=== PATIENT | female | born 1995 | race Caucasian/White ===

== ENCOUNTER 2019-01-02 04:25 | Emergency (ER) | payer SELFPAY ==
[~2019-01-02] VITALS: Ht 154.9 cm; Wt 72.6 kg
[2019-01-02 04:28] VITALS: Ht 154.9 cm; Wt 72.6 kg
[2019-01-02 05:33] LABS: BASOPHIL % 0.5 % (0-2); PLATELET COUNT 330 x10^3mcL (130-400); RED CELL DISTRIBUTION WIDTH 14.1 % (11.5-14.5)
[2019-01-02 05:40] LABS: CALCIUM 8.2 mg/dL (8.5-10.1); CARBON DIOXIDE 25.3 mmol/L (21-32); CHLORIDE SERUM 106 mmol/L (98-107); CREATININE SERUM 0.8 mg/dL (0.6-1.0); GFR1 > 60 mL/min; GLUCOSE SERUM 87 mg/dL (74-106); POTASSIUM SERUM 3.8 mmol/L (3.5-5.1); SODIUM SERUM 139 mmol/L (136-145)
[2019-01-02 05:44] LABS: ALBUMIN 3.4 g/dL (3.4-5.0); ALKALINE PHOSPHATASE 73 U/L (46-116); ALT/SGPT 38 U/L (14-59); AMYLASE 30 U/L (25-115); AST/SGOT 14 U/L (15-37); BILIRUBIN TOTAL 0.61 mg/dL (0.20-1.00); LIPASE 65 IU/L (73-393); TOTAL PROTEIN, SERUM 7.4 g/dL (6.4-8.2)
[2019-01-02 10:58] VITALS: BP 122/84
== END 2019-01-02 10:58 | disposition home or self-care (01) ==
LOC: ED 04:25
PROVIDERS: Emergency Medicine
DX: N20.0 Calculus of kidney (principal); Z91.018 Allergy to other foods
CPT/HCPCS: J2060; J2270; J2405; J7030; Q9966; Q9967

== ENCOUNTER 2019-04-28 18:54 | Emergency (ER) | payer MEDICAID ==
[~2019-04-28] VITALS: Ht 152.4 cm; Wt 73.0 kg
[2019-04-28 18:57] VITALS: Ht 152.4 cm; Wt 73.0 kg
[2019-04-28 21:56] VITALS: BP 113/69
== END 2019-04-28 21:56 | disposition home or self-care (01) ==
LOC: ED 18:54
DX: T78.09XA Anaphylactic reaction due to other food products, initial encounter (principal); X58.XXXA Exposure to other specified factors, initial encounter; Y93.89 Activity, other specified; Y92.89 Other specified places as the place of occurrence of the external cause; Y99.8 Other external cause status
CPT/HCPCS: J0171; J1200; J2930; J3490

== ENCOUNTER 2020-06-22 21:18 | Emergency (ER) | payer MEDICAID ==
[~2020-06-22] VITALS: Ht 152.4 cm; Wt 73.0 kg
[2020-06-22 21:31] VITALS: Ht 152.4 cm; Wt 73.0 kg
[2020-06-22 23:40] VITALS: BP 102/68
== END 2020-06-22 23:41 | disposition home or self-care (01) ==
LOC: ED 21:18
DX: N39.0 Urinary tract infection, site not specified (principal); R50.9 Fever, unspecified
CPT/HCPCS: U0003